=== PATIENT | male | born 1975 | race Hispanic/Latino ===

== ENCOUNTER 2019-07-20 17:38 | Emergency (ER) | payer SELFPAY ==
--- NOTE | 2019-07-20 17:51 | Event Note ---
ED Screening Note Date of service: 07/20/19 Time: 17:47 ED Screening Note: This is a 43 y.o. M. that presents to the ER with posterior neck pain. 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 States when he returned home from work yesterday and worse when he woke up this morning. Denies injury This initial assessment/diagnostic orders/clinical plan/treatment(s) is/are subject to change based on patients health status, clinical progression and re- assessment by fellow clinical providers in the ED. Further treatment and workup at subsequent clinical providers discretion. Patient/guardian urged not to elope from the ED as their condition may be serious if not clinically assessed and managed. Initial orders include: XR of cervical spine
--- NOTE | 2019-07-20 18:33 | XRay Report ---
CERVICAL SPINE, AP AND LATERAL 07/20/2019. INDICATION / CLINICAL INFORMATION: posterior neck pain. COMPARISON: None available. FINDINGS: No fracture or subluxation. Mild degenerative changes are seen at C6-C7. Signer Name: Joey Michele MD Signed: 07/20/2019 6:29 PM Workstation Name: [id number]
--- NOTE | 2019-07-20 20:05 | Emergency Department Report ---
HPI - General Chief Complaint: Neck Pain/Injury Time Seen by Provider: 07/20/19 17:46 - HPI HPI: Room 30 The patient is a 43-year-old male present with a chief complaint of neck pain. Patient states 2 days ago he was moving fitness equipment but does not recall any specific injuries. The following day he states he woke up he felt as though he had a "crook" in his neck. The patient says the day progressed the pain worsened to the point where is difficult for him to move his head. Patient denies any direct trauma or history of fever. Patient gives his pain a score of "over 10/10." ED Past Medical Hx - Past Medical History Previous Medical History?: Yes Hx Kidney Stones: Yes Additional medical history: panic attacks - Surgical History Past Surgical History?: Yes Additional Surgical History: lithotripsy - Family History Family history: no significant - Social History Smoking Status: Current Every Day Smoker (1/4 pack/day) Substance Use Type: Marijuana - Medications Home Medications: Home Medications Medication Instructions Recorded Confirmed Last Taken Type clonazePAM [Klonopin] 1 mg PO BID 07/08/13 07/08/13 07/07/13 21:00 History HYDROcodone/APAP 10-325 [Foster 1 each PO Q6HR PRN #14 tablet 09/05/13 Unknown Rx 10/325] Ibuprofen [Motrin 800 MG tab] 800 mg PO Q8H #30 tablet 09/05/13 Unknown Rx Lidocaine Topical 2% 30Ml 1 gm TP QID PRN #1 tube 10/10/15 Unknown Rx [Xylocaine Topical 2% 30Ml] traMADoL [Ultram 50 MG tab] 50 mg PO Q4HR PRN #20 tablet 10/10/15 Unknown Rx HYDROcodone/APAP 7.5-325 [Foster 1 each PO Q6HR PRN #20 tablet 02/28/16 Unknown Rx 7.5-325 mg TAB] Ketorolac [Toradol] 10 mg PO Q6H PRN #20 tablet 02/28/16 Unknown Rx Nitrofurantoin [place]/M-Cryst 100 mg PO Q12HR #10 capsule 02/28/16 Unknown Rx [Macrobid CAP] Ondansetron [Zofran Odt] 4 mg PO Q8HR #20 tab.rapdis 02/28/16 Unknown Rx Tamsulosin [Flomax] 0.4 mg PO QDAY #7 cap 02/28/16 Unknown Rx Cyclobenzaprine [Flexeril] 10 mg PO TID PRN #14 tablet 07/20/19 Unknown Rx HYDROcodone/APAP 5-325 [Foster 1 - 2 each PO Q6HR PRN #14 tablet 07/20/19 Unknown Rx 5/325] Ibuprofen [Motrin 800 MG tab] 800 mg PO Q8HR PRN #20 tablet 07/20/19 Unknown Rx ED Review of Systems ROS: Stated complaint: NECK PAIN Other details as noted in HPI Constitutional: denies: fever Musculoskeletal: myalgia Physical Exam - Physical Exam Vital Signs: Vital Signs 07/20/19 17:46 Temperature 98.6 F Pulse Rate 92 H Respiratory 18 Rate Blood Pressure 118/61 O2 Sat by Pulse 97 Oximetry Physical Exam: GENERAL: The patient is well-developed well-nourished male sitting in chair appearing to be in moderate discomfort. [] HEENT: Normocephalic. Atraumatic. Extraocular motions are intact. Patient has moist mucous membranes. NECK: Supple. Mild midline discomfort to palpation but greater discomfort to palpation in the right paraspinous region along the trapezius. Limited range of motion secondary to pain CHEST/LUNGS: There is no respiratory distress noted. SKIN: There is no rash. There is no edema. There is no diaphoresis. NEURO: The patient is awake, alert, and oriented. The patient is cooperative. The patient has no focal neurologic deficits. The patient has normal speech MUSCULOSKELETAL: There is tenderness to palpation of the right trapezius muscle. There is no evidence of acute injury. ED Course Vital Signs 07/20/19 17:46 Temperature 98.6 F Pulse Rate 92 H Respiratory 18 Rate Blood Pressure 118/61 O2 Sat by Pulse 97 Oximetry - Reevaluation(s) Reevaluation #1: 07/20/19 21:44 Patient looks improved using cell phone ED Medical Decision Making - Radiology Data Radiology results: report reviewed (Cervical spine x-ray, CT cervical spine), image reviewed (Cervical spine x-ray, CT cervical spine) interpreted by me: C-spine x-ray-no acute fracture Findings [facility] [address] [place] [address] XRay Report Signed Patient: LUIS VERDUGO MR#: [id number] : 1975 Acct:[id number] Age/Sex: 43 / M ADM Date: 07/20/19 Loc: ED Attending Dr: Ordering Physician: DIANNA AVENDANO Date of Service: 07/20/19 Procedure(s): XR spine cervical 2-3V Accession Number(s): [id number] cc: DIANNA AVENDANO Fluoro Time In Minutes: CERVICAL SPINE, AP AND LATERAL 07/20/2019. INDICATION / CLINICAL INFORMATION: posterior neck pain. COMPARISON: None available. FINDINGS: No fracture or subluxation. Mild degenerative changes are seen at C6-C7. Signer Name: Joey Michele MD Signed: 07/20/2019 6:29 PM Workstation Name: [id number] Transcribed By: KYMBERLY Dictated By: Joey Michele MD Electronically Authenticated By: Joey Michele MD Signed Date/Time: 07/20/191828 DD/ 27 TD/TT: Findings [address] [address] Cat Scan Report Signed Patient: LUIS VERDUGO MR#: [id number] : 1975 Acct:[id number] Age/Sex: 43 / M ADM Date: 07/20/19 Loc: ED Attending Dr: Ordering Physician: MARCELINO NÚÑEZ MD Date of Service: 07/20/19 Procedure(s): CT cervical spine wo con Accession Number(s): [id number] cc: MARCELINO NÚÑEZ MD Exam: CT cervical spine History: Right paraspinous cervical pain after heavy liftin; Technique: Contiguous thin cut axial images obtained through the cervical spine. Sagittal and coronal reconstructions performed by the technologist. All CT scans at this location are performed using CT dose reduction for ALARA by means of automated exposure control. Findings: No priors. There is no evidence of fracture or traumatic subluxation. Vertebral bodies are normal in height and alignment. Intervertebral disc spaces are well-maintained. Left foraminal disc protrusion with calcified annulus is seen at C6-C7 disc level. No significant degenerative change seen in the uncinate or facet joints. No significant canal stenosis or osseous foraminal narrowing. Bilateral cervical ribs are seen. Impression: No signs of acute bony trauma to the cervical spine. Left foraminal disc protrusion with calcified annulus at C6-C7 disc level Signer Name: Paula Bowens MD Signed: 07/20/2019 9:19 PM Workstation Name: [email or web address] Transcribed By: BS Dictated By: Paula Galo MD Electronically Authenticated By: Paula Galo MD Signed Date/Time: 07/20/192118 DD/ 14 TD/TT: - Differential Diagnosis Cervical strain, trapezius strain, cervical radiculopathy Critical care attestation.: If time is entered above; I have spent that time in minutes in the direct care of this critically ill patient, excluding procedure time. ED Disposition Clinical Impression: Acute neck pain Disposition: TO HOME OR SELFCARE Is pt being admited?: No Does the pt Need Aspirin: No Condition: Stable Instructions: Cervical Sprain (ED) Additional Instructions: Return to the emergency department should you develop worsening symptoms, inability to tolerate food or liquids, high fever or any other concerns Prescriptions: Cyclobenzaprine [Flexeril] 10 mg PO TID PRN #14 tablet PRN Reason: Muscle Spasm Ibuprofen [Motrin 800 MG tab] 800 mg PO Q8HR PRN #20 tablet PRN Reason: Pain, Moderate (4-6) HYDROcodone/APAP 5-325 [Foster 5/325] 1 - 2 each PO Q6HR PRN #14 tablet PRN Reason: Pain Referrals: SHY LEE MD [Staff Physician] - 3-5 Days (Dr. Lee is an orthopedic surgeon. Please follow-up with him for further evaluation) Time of Disposition: 21:44
[2019-07-20] MEDS ORDERED: HYDROmorphone 1 MG/1 ML INJ IM ONE (20:08)
[2019-07-20] MEDS ORDERED: ONDANSETRON 4 MG/2 ML INJ IM ONE (20:08)
[2019-07-20] MEDS ORDERED: KETOROLAC 60 MG/2 ML INJ IM ONE (20:08)
[2019-07-20] MEDS ORDERED: CYCLOBENZAPRINE 10 MG TAB PO ONE (20:09)
--- NOTE | 2019-07-20 21:23 | Cat Scan Report ---
Exam: CT cervical spine History: Right paraspinous cervical pain after heavy liftin; Technique: Contiguous thin cut axial images obtained through the cervical spine. Sagittal and pickens l reconstructions performed by the technologist. All CT scans at this location are performed using CT dose reduction for ALARA by means of automated exposure control. Findings: No priors. There is no evidence of fracture or traumatic subluxation. Vertebral bodies are normal in height and alignment. Intervertebral disc spaces are well-maintained. Left foraminal disc protrusion with calcified annulus is seen at C6-C7 disc level. No significant degenerative change seen in the uncinate or facet joints. No significant canal stenosi s or osseous foraminal narrowing. Bilateral cervical ribs are seen. Impression: No signs of acute bony trauma to the cervical spine. Left foraminal disc protrusion with calcified annulus at C6-C7 disc level Signer Name: Paula Bowens MD Signed: 07/20/2019 9:19 PM Workstation Name: [id number]
[2019-07-20 22:02] VITALS: BP 124/76
== END 2019-07-20 22:17 | disposition home or self-care (01) ==
LOC: ED 17:38
DX: M54.2 Cervicalgia (principal); F17.200 Nicotine dependence, unspecified, uncomplicated; F12.10 Cannabis abuse, uncomplicated
CPT/HCPCS: 72040; 72125; 96372; 99284; J1170; J1885; J2405